=== PATIENT | female | born 1995 | race Caucasian/White ===

== ENCOUNTER 2019-01-20 12:30 | Emergency (ER) | payer OTHER ==
[~2019-01-20] VITALS: Ht 165.1 cm; Wt 93.4 kg
[2019-01-20 12:40] VITALS: BP 140/81
--- NOTE | 2019-01-20 13:00 | NUR ---
PT BIB FAMILY TO ER WITH C/O DIARRHEA X4 DAYS, LEFT LOWER BACK PAIN X3 DAYS, DENIES INJURY OR TRAUMA. ALSO C/O LOWER ABD PAIN LAST NIGHT WITH NAUSEA AND CHILLS. DENIES ANY FEVER, DISCOMFORT IN URINATION, NO FOULD ORDOR IN URINE. ER MD ASSESSING PT. WILL CONTINUE TO MONITOR PT. HX DENIES
[2019-01-20] MEDS ORDERED: LOPERAMIDE 2 MG CAP PO ONE (13:05)
[2019-01-20] MEDS ORDERED: KETOROLAC 30 MG/ML VIAL IVP ONE (13:05)
[2019-01-20] MEDS ORDERED: NACL 0.9% 1,000 ML IV ONE (13:05)
[2019-01-20] MEDS ORDERED: ONDANSETRON 4 MG/2 ML VIAL IVP ONE (13:05)
[2019-01-20 13:25] LABS: BASOPHILS % (AUTO) 0.4 % (0.0-2.0); EOSINOPHILS % (AUTO) 0.6 % (0.0-4.0); HEMATOCRIT 38.2 % (36-48); HEMOGLOBIN 12.7 g/dL (12.0-16.0); LYMPHOCYTES # (AUTO) 1.4 K/uL (2.5-16.5); LYMPHOCYTES % (AUTO) 23.4 % (20.5-51.1); MEAN CORPUSCULAR HEMOGLOBIN 30 pg (27-31); MEAN CORPUSCULAR HGB CONC 33 g/dL (33-37); MEAN CORPUSCULAR VOLUME 89.9 fL (80-94); MONOCYTES # (AUTO) 0.4 K/uL (0.8-1.0); MONOCYTES % (AUTO) 7.4 % (1.7-9.3); NEUTROPHILS # (AUTO) 4.1 K/uL (1.8-7.7); NEUTROPHILS % (AUTO) 68.2 % (42.2-75.2); PLATELET COUNT (AUTO) 303 K/uL (140-450); RED BLOOD CELL COUNT(AUTO) 4.25 MIL/uL (4.20-5.40); RED CELL DISTRIBUTION WIDTH 13.7 % (11.6-13.7)
[2019-01-20 13:36] LABS: ANION GAP 10.8 (8-16); CARBON DIOXIDE 27.1 mmol/L (21-32); CREATININE 0.6 mg/dL (0.6-1.3); POTASSIUM 3.9 mmol/L (3.5-5.1)
--- NOTE | 2019-01-20 13:37 | NUR ---
Dr. Guillen re-evaluating patient at bedside.
[2019-01-20 13:41] LABS: ALBUMIN 3.3 g/dL (3.4-5.0); TOTAL BILIRUBIN 0.3 mg/dL (0.0-1.0)
[2019-01-20 14:29] VITALS: BP 121/79
--- NOTE | 2019-01-20 14:29 | NUR ---
Patient discharged with v/s stable. Written and verbal after care instructions given and explained. Patient alert, oriented and verbalized understanding of instructions. Ambulatory with steady gait. All questions addressed prior to discharge. ID band removed. Patient advised to follow up with PMD. Rx of Motrin 800mg, Zofran ODT, Imodium A-D 2mg given. Patient educated on indication of medication including possible reaction and side effects. Opportunity to ask questions provided and answered. IV removed, catheter intact and site benign. Applied folded 4x4 gauze and tape to stop bleeding.
== END 2019-01-20 14:29 | disposition home or self-care (01) ==
LOC: MED 12:30
DX: K52.9 Noninfective gastroenteritis and colitis, unspecified (principal); M54.5 Low back pain
CPT/HCPCS: 36415; 80053; 85025; 96361; 96374; 96375; 99283; J1885; J2405; J7030

== ENCOUNTER 2019-03-20 21:50 | Emergency (ER) | payer OTHER ==
[~2019-03-20] VITALS: Ht 165.1 cm; Wt 81.6 kg
[2019-03-20 21:58] VITALS: BP 131/89
[2019-03-20] MEDS: KETOROLAC 60 MG/2 ML VIAL IM ONE (23:05)
[2019-03-20 23:16] VITALS: BP 131/89
== END 2019-03-20 23:16 | disposition home or self-care (01) ==
LOC: MED 21:50
DX: M54.5 Low back pain (principal); V49.49XA Driver injured in collision with other motor vehicles in traffic accident, initial encounter; Y93.89 Activity, other specified; Y92.89 Other specified places as the place of occurrence of the external cause; Y99.8 Other external cause status
CPT/HCPCS: 96372; 99283; J1885

== ENCOUNTER 2019-08-11 15:01 | Emergency (ER) | payer OTHER ==
[~2019-08-11] VITALS: Ht 162.6 cm; Wt 95.3 kg
[2019-08-11 15:08] VITALS: BP 121/77
--- NOTE | 2019-08-11 15:13 | NUR ---
AMB TO BED 06
--- NOTE | 2019-08-11 15:35 | NUR ---
A1 LMP JUN 03, JOESPH MAR 16 8 WK C/O LOWER ABD CRAMPING RADIATING TO LOWER BACK ACCOMPANIED BY LIGHT SPOTTING, BLEEDING CONTROLLED LESS THAN ONE PAD SATURATED. PT PROVIDED WITH GOWN, AT BEDSIDE AND BED IN LOW POSITION/SIDE RAIL UP X1.
--- NOTE | 2019-08-11 15:40 | NUR ---
ainsley barbosa at bedside evaluating pt
--- NOTE | 2019-08-11 16:20 | NUR ---
US at bedside
[2019-08-11 16:56] LABS: APPEARANCE,URINE CLEAR (CLEAR); BILIRUBIN,URINE NEGATIVE (NEGATIVE); BLOOD, URINE 2+ (NEGATIVE); COLOR,URINE YELLOW (YELLOW); LEUKOCYTE ESTERASE ,URINE NEGATIVE (NEGATIVE); NITRITE, URINE NEGATIVE (NEGATIVE); UGLUCOSE NEGATIVE (NEGATIVE)
[2019-08-11 16:59] LABS: RBC,URINE 11-20 (MOD) /HPF (0-5); WBC,URINE 0-5 /HPF (0-5)
[2019-08-11 17:07] LABS: BASOPHILS # (AUTO) 0.1 K/uL (0.00-0.22); BASOPHILS % (AUTO) 1.2 % (0.0-2.0); EOSINOPHILS # (AUTO) 0.1 K/uL (0-0.4); EOSINOPHILS % (AUTO) 0.8 % (0.0-4.0); HEMATOCRIT 36.6 % (36-48); HEMOGLOBIN 12.4 g/dL (12.0-16.0); LYMPHOCYTES % (AUTO) 26.2 % (20.5-51.1); MEAN CORPUSCULAR HEMOGLOBIN 29 pg (27-31); MEAN CORPUSCULAR HGB CONC 34 g/dL (33-37); MEAN CORPUSCULAR VOLUME 87.1 fL (80-94); MONOCYTES # (AUTO) 0.5 K/uL (0.8-1.0); MONOCYTES % (AUTO) 6.2 % (1.7-9.3); NEUTROPHILS # (AUTO) 5.1 K/uL (1.8-7.7); NEUTROPHILS % (AUTO) 65.6 % (42.2-75.2); PLATELET COUNT (AUTO) 315 K/uL (140-450); RED CELL DISTRIBUTION WIDTH 15.3 % (11.6-13.7); WHITE BLOOD COUNT (AUTO) 7.8 K/uL (4.8-10.8)
--- NOTE | 2019-08-11 18:42 | NUR ---
Pt resting in bed, no new needs at this time
--- NOTE | 2019-08-11 19:13 | NUR ---
RECEIVED REPORT FROM MINDY DICKINSON
[2019-08-11 19:15] VITALS: BP 113/79
--- NOTE | 2019-08-11 19:16 | NUR ---
Patient discharged with v/s stable. Written and verbal after care instructions given and explained. Patient verbalized understanding. Ambulatory with steady gait. All questions addressed prior to discharge. Advised to follow up with PMD.
== END 2019-08-11 19:16 | disposition home or self-care (01) ==
LOC: MED 15:01
DX: O46.91 Antepartum hemorrhage, unspecified, first trimester (principal); O26.91 Pregnancy related conditions, unspecified, first trimester; R10.9 Unspecified abdominal pain
CPT/HCPCS: 36415; 76817; 81001; 84702; 85025; 86900; 86901; 99284; Q0092

== ENCOUNTER 2023-07-19 23:25 | Emergency (ER) | payer OTHER ==
[~2023-07-19] VITALS: Ht 165.1 cm; Wt 90.7 kg
[2023-07-19 23:30] VITALS: BP 140/80; PULSE 87; RESP 19; TEMP 98.5; O2SAT 97
[2023-07-20 00:29] LABS: FLU A ANTIGEN negative (NEGATIVE); FLU B ANTIGEN NEGATIVE (NEGATIVE)
[2023-07-20] MEDS ORDERED: IPRATROPIUM 0.02% 0.5 MG/2.5 ML NEBU INH ONE (05:00)
[2023-07-20] MEDS ORDERED: predniSONE 20 MG TAB PO ONE (05:00)
[2023-07-20] MEDS ORDERED: ALBUTEROL 0.083% 2.5 MG/3 ML NEBU INH ONE (05:00)
[2023-07-20] MEDS ORDERED: ALBU0.0912 INH (05:00)
[2023-07-20] MEDS ORDERED: PRED20TA5 PO (05:01)
[2023-07-20 05:06] VITALS: PULSE 93; RESP 18; O2SAT 98
[2023-07-20] MEDS ORDERED: CILOS LEFT EYE (05:09)
[2023-07-20] MEDS ORDERED: SULF-58 PO (05:11)
[2023-07-20] MEDS ORDERED: AMOX1TAB8 PO (05:14)
[2023-07-20 06:51] VITALS: BP 140/80; PULSE 93; RESP 18; TEMP 98.5; O2SAT 98
== END 2023-07-20 06:51 | disposition home or self-care (01) ==
LOC: MED 23:25
DX: J20.9 Acute bronchitis, unspecified (principal); H10.89 Other conjunctivitis; B96.89 Other specified bacterial agents as the cause of diseases classified elsewhere; L03.213 Periorbital cellulitis; Z20.822 Contact with and (suspected) exposure to COVID-19; Z79.899 Other long term (current) drug therapy; Z79.2 Long term (current) use of antibiotics
CPT/HCPCS: 71045; 87426; 87804; 94640; 99284; J7512; J7613; J7644